=== PATIENT | female | born 1955 | race Caucasian/White ===

== ENCOUNTER 2019-07-01 14:40 | Emergency (ER) | payer SELFPAY ==
[2019-07-01] MEDS ORDERED: HYDROmorphone 1 MG/ML Syringe IM ONE (15:13)
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
[2019-07-01] MEDS ORDERED: Hydrocortisone/Neomycin/Polymyxin B Otic Susp 10 ML Bottle EARRT ONE (16:59)
--- NOTE | 2019-07-01 17:54 | US ---
Left lower extremity deep venous ultrasound: Duplex and color Doppler evaluation was obtained of the left common femoral, proximal greater saphenous, superficial femoral, popliteal, posterior tibial and peroneal veins. Right common femoral vein is also evaluated. Findings: Normal phasic flow, augmentation and compression is seen. Impression: 1. No findings of deep venous thrombosis within the left lower extremity or within the right common femoral vein. Diagnostic code #1 This report was dictated in [place] Standard Time
--- NOTE | 2019-07-02 07:25 | CR ---
Left hip: AP and frog-leg lateral views of the left hip were obtained. Comparison: No prior hip exam is available. Left hip prosthesis is seen. Components are aligned. Underlying bony structures are intact. Impression: 1. Nothing acute is seen on left hip exam. Diagnostic code #1 This report was dictated in [place] [employer] Time
== END 2019-07-01 18:23 | disposition home or self-care (01) ==
LOC: JD.ED 14:40
DX: T84.89XA Other specified complication of internal orthopedic prosthetic devices, implants and grafts, initial encounter (principal); Z96.642 Presence of left artificial hip joint; H60.391 Other infective otitis externa, right ear; F17.210 Nicotine dependence, cigarettes, uncomplicated; J44.9 Chronic obstructive pulmonary disease, unspecified; Z79.899 Other long term (current) drug therapy
CPT/HCPCS: 36415; 73502; 80053; 85007; 85027; 85610; 85730; 86140; 93971; 96372; 99284; J1170; 99283